=== PATIENT | female | born 1985 | race Caucasian/White ===

== ENCOUNTER 2017-05-29 05:08 | Inpatient (IN) | payer MEDICAID ==
[2017-05-29] MEDS ORDERED: Citric Acid/Sodium Citrate Solution 30 ML Cup PO ONE (05:26)
[2017-05-29] MEDS ORDERED: Sodium Chloride 0.9% 10 ML Syringe FLUSH PRN (05:26)
[2017-05-29] MEDS ORDERED: Metoclopramide 10 MG/2 ML SDV IVPUSH ONE (05:26)
[2017-05-29] MEDS: Lactated Ringers 1,000 ML IV SCH ×2 (05:50→06:57)
[2017-05-29] MEDS ORDERED: Bupivacaine 0.5% 30 ML SDV ONE (06:56)
[2017-05-29] MEDS ORDERED: ceFAZolin 1 GM Vial ONE (07:13)
[2017-05-29] MEDS ORDERED: Ketorolac 30 MG/ML SDV ONE (07:13)
[2017-05-29] MEDS ORDERED: Lactated Ringers 2,000 ML ONE (07:13)
[2017-05-29] MEDS ORDERED: Phenylephrine/Normal Saline 100 MCG/ML 10 ML Syringe ONE (07:13)
[2017-05-29] MEDS ORDERED: Dexamethasone 4 MG/ML SDV ONE (07:13)
[2017-05-29] MEDS ORDERED: Ondansetron 4 MG/2 ML SDV ONE ×2 (07:13→13:18)
[2017-05-29] MEDS ORDERED: Oxytocin 10 Units/1 ML SDV ONE (07:13)
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
[2017-05-29] MEDS ORDERED: ePHEDrine 50 MG/ML SDV IVPUSH PRN ×2 (08:31→09:49)
[2017-05-29] MEDS ORDERED: diphenhydrAMINE 50 MG/ML SDV IVPUSH PRN ×2 (08:31→09:49)
[2017-05-29] MEDS ORDERED: Ondansetron 4 MG/2 ML SDV IVPUSH PRN ×2 (08:31→13:16)
[2017-05-29] MEDS ORDERED: diphenhydrAMINE 50 MG/ML SDV ONE (08:55)
--- NOTE | 2017-05-29 08:56 | PCM.POSTAN ---
POST ANESTHESIA ASSESSMENT - MENTAL STATUS Mental Status: Alert, Oriented - VITAL SIGNS Pulse Rate: 63 SaO2: 95 Resp Rate: 11 Blood Pressure: 114/78 Temperature: 36.6 C - RESPIRATORY Respiratory Status: Respiratory Rate WNL, Airway Patent, O2 Saturation Stable - CARDIOVASCULAR CV Status: Pulse Rate WNL, Blood Pressure Stable - GASTROINTESTINAL GI Status: No Symptoms - PAIN Pain Score: 0 - POST OP HYDRATION Hydration Status: Adequate & Stable
--- NOTE | 2017-05-29 09:06 | PCM.OPNOTE ---
- General Post-Op/Procedure Note Date of Surgery/Procedure: 05/29/17 Operative Procedure(s): repeat Findings: viable female, 5#13oz, 8/9 APGARS 8/9 AT 0817, normal uterus tubes and ovaries Pre Op Diagnosis: prior desires repeat Post-Op Diagnosis: Same Anesthesia Technique: Spinal Primary Surgeon: Merline Zapata [employer] Met[employer] Engraver Hand: Saba He Role of Soft Metals Engraver Hand: retraction, positioning, patient safety EBL in mLs: 500 Condition: Good Free Text/Narrative:: The patient was taken to the operating room where epidural anesthesia was dosed to surgical levels without difficulty. The patient was prepped and draped in the usual sterile fashion in the dorsal supine position with a leftward tilt. A Pfannenstiel skin incision was made with the scalpel and carried through to the underlying layer of fascia. The fascia was incised in the midline and extended laterally using Denis scissors. Jalyn clamps were used to elevate the superior aspect of the fascial incision, which was elevated, and the underlying rectus muscles were dissected off bluntly and using Denis scissors. Attention was then turned to the inferior aspect of the fascial incision, which in similar fashion was grasped with Jalyn clamps, elevated, and the underlying rectus muscles were dissected off bluntly and using the denis. The rectus muscles were dissected in the midline. The peritoneum was entered bluntly; this incision was extended superiorly and inferiorly with good visualization of the bladder. The bladder blade was inserted. The vesicouterine peritoneum was identified and entered sharply using Metzenbaum scissors. This incision was extended laterally and the bladder flap was created digitally. The bladder blade was reinserted. The lower uterine segment was incised in a transverse fashion using the scalpel and with digital traction. Clear fluid was noted. The was subsequently delivered by flexing the head to the incision. Body and shoulders followed without difficulty. The cord was clamped and cut. The was subsequently handed to the awaiting vessel slagman whose presence had been requested.. The placenta was delivered spontaneously intact with a three-vessel cord noted. The uterus was exteriorized and cleared of all clots and debris. The uterine incision was repaired in 2 layers using 0 monocryl. Hemostasis was visualized. Hemostasis was visualized bilaterally. The uterus was returned to the abdomen. The uterine incision was reexamined and it was noted to be hemostatic. The pelvis was copiously irrigated. The fascia was closed with 1 PDS suture, and the skin was closed with 3-0 monocryl. Sponge, lap, and instrument counts were correct x2. The patient was stable at the completion of the procedure and was subsequently transferred to the recovery room in stable condition.
[2017-05-29] MEDS ORDERED: Dextrose 5%-Lactated Ringers 1,000 ML IV SCH (09:49)
[2017-05-29] MEDS ORDERED: Naloxone 0.4 MG/ML SDV IVPUSH PRN (09:49)
[2017-05-29] MEDS ORDERED: Ketorolac 30 MG/ML SDV IVPUSH SCH (09:49)
[2017-05-29] MEDS ORDERED: Acetaminophen/oxyCODONE 325-5 MG Tab PO PRN (09:49)
[2017-05-29] MEDS ORDERED: Sennosides 8.6 MG Tab PO PRN (09:49)
[2017-05-29] MEDS ORDERED: Lanolin 100% Cream 7 GM Tube TOP PRN (09:49)
[2017-05-29] MEDS ORDERED: Morphine PF 10 MG/10 ML SDV ONE (13:00)
[2017-05-29] MEDS: Simethicone 80 MG Tab.Chew PO SCH ×2 (13:54→17:55)
[2017-05-29] MEDS: Ketorolac 30 MG/ML SDV IVPUSH SCH (15:47)
[2017-05-29] MEDS ORDERED: Lactated Ringers 1,000 ML IV ONE (17:48)
[2017-05-29] MEDS ORDERED: Lactated Ringers 1,000 ML IV SCH (18:00)
[2017-05-30] MEDS: Simethicone 80 MG Tab.Chew PO SCH ×5 (04:52→21:23)
[2017-05-30] MEDS: Ketorolac 30 MG/ML SDV IVPUSH SCH ×2 (04:55)
[2017-05-30] MEDS: Ibuprofen 600 MG Tab PO PRN ×2 (13:21→18:37)
--- NOTE | 2017-05-30 15:01 | PCM48HPAN ---
Post Anesthesia Note - EVALUATION WITHIN 48HRS OF ANESTHETIC Vital Signs in Normal Range: Yes Patient Participated in Evaluation: Yes Respiratory Function Stable: Yes Airway Patent: Yes Cardiovascular Function Stable: Yes Hydration Status Stable: Yes Pain Control Satisfactory: Yes Nausea and Vomiting Control Satisfactory: Yes Mental Status Recovered: Yes
--- NOTE | 2017-05-30 19:16 | PCM.PNPP ---
- General Info Date of Service: 05/30/17 Functional Status: Reports: Pain Controlled - Review of Systems General: Reports: No Symptoms HEENT: Reports: No Symptoms Pulmonary: Reports: No Symptoms Cardiovascular: Reports: No Symptoms Gastrointestinal: Reports: No Symptoms Genitourinary: Reports: No Symptoms Musculoskeletal: Reports: No Symptoms Skin: Reports: No Symptoms Neurological: Reports: No Symptoms Psychiatric: Reports: No Symptoms - General Info Date of Service: 05/30/17 - Patient Data Vital Signs - Most Recent: Last Vital Signs Temp 36.4 C 05/30/17 14:32 Pulse 67 05/30/17 14:32 Resp 17 05/30/17 14:32 BP 131/70 05/30/17 14:32 Pulse Ox 98 05/30/17 14:32 Weight - Most Recent: 106.549 kg I&O - Last 24 Hours: Intake & Output 05/30/17 05/30/17 05/30/17 06:59 14:59 22:59 Intake Total 1000 0 300 Output Total 900 Balance 100 0 300 Lab Results - Last 24 Hours: Laboratory Results - last 24 hr 05/30/17 Range/Units 06:23 WBC 15.06 H (3.98-10.04) K/mm3 RBC 3.85 L (3.98-5.22) M/mm3 Hgb 11.6 (11.2-15.7) gm/L Hct 35.6 (34.1-44.9) % MCV 92.5 (79.4-94.8) fl MCH 30.1 (25.6-32.2) pg MCHC 32.6 (32.2-35.5) g/dl RDW Std Deviation 43.0 (36.4-46.3) fL Plt Count 222 (182-369) K/mm3 MPV 10.0 (9.4-12.3) fl Neut % (Auto) 62.4 (34.0-71.1) % Lymph % (Auto) 30.0 (19.3-51.7) % [place] % (Auto) 6.3 (4.7-12.5) % Eos % (Auto) 0.7 (0.7-5.8) Baso % (Auto) 0.1 (0.1-1.2) % Neut # (Auto) 9.39 H (1.56-6.13) K/mm3 Lymph # (Auto) 4.52 H (1.18-3.74) K/mm3 [place] # (Auto) 0.95 H (0.24-0.36) K/mm3 Eos # (Auto) 0.11 (0.04-0.36) K/mm3 Baso # (Auto) 0.01 (0.01-0.08) K/mm3 Manual Slide Review Normal smear Med Orders - Current: Current Medications Diphenhydramine HCl (Benadryl) 25 mg IVPUSH Q6H PRN PRN Reason: Itching or Nausea Emollient Ointment (Lansinoh Hpa) 0 gm TOP ASDIRECTED PRN PRN Reason: Sore Nipples Ephedrine Sulfate (Ephedrine Sulfate) 5 mg IVPUSH SEECOMMENT PRN PRN Reason: Other Lactated Ringer's (Ringers, Lactated) 1,000 mls @ 125 mls/hr IV ASDIRECTED [facility] Last Admin: 05/29/17 21:24 Dose: 125 mls/hr Ibuprofen (Motrin) 600 mg PO Q6H PRN PRN Reason: mild pain or fever Last Admin: 05/30/17 18:37 Dose: 600 mg Naloxone HCl (Narcan) 0.1 mg IVPUSH SEECOMMENT PRN PRN Reason: Respiratory Depression Ondansetron HCl (Zofran) 4 mg IVPUSH Q8H PRN PRN Reason: Nausea/Vomiting Last Admin: 05/29/17 13:21 Dose: 4 mg Oxycodone/Acetaminophen (Percocet 325-5 Mg) 2 tab PO Q6H PRN PRN Reason: Pain (moderate 4-6) Senna (Senna) 8.6 mg PO BEDTIME PRN PRN Reason: Constipation Simethicone (Simethicone) 80 mg PO PCBED [facility] Last Admin: 05/30/17 18:38 Dose: 80 mg Discontinued Medications Bupivacaine HCl (Marcaine 0.5%) Confirm Administered Dose 30 ml .ROUTE .STK-MED ONE Stop: 05/29/17 06:57 Last Admin: 05/29/17 08:14 Dose: 20 ml Cefazolin Sodium (Ancef) Confirm Administered Dose 2 gm .ROUTE .STK-MED ONE Stop: 05/29/17 07:14 Citric Acid/Sodium Citrate (Bicitra Solution) 30 ml PO ONETIME ONE Stop: 05/29/17 05:27 Last Admin: 05/29/17 06:55 Dose: 30 ml Dexamethasone (Dexamethasone) Confirm Administered Dose 4 mg .ROUTE .STK-MED ONE Stop: 05/29/17 07:14 Diphenhydramine HCl (Benadryl) 25 mg IVPUSH Q6H PRN PRN Reason: Pruritis Diphenhydramine HCl (Benadryl) Confirm Administered Dose 50 mg .ROUTE .STK-MED ONE Stop: 05/29/17 08:56 Ephedrine Sulfate (Ephedrine Sulfate) 5 mg IVPUSH ASDIRECTED PRN PRN Reason: Hypotension Lactated Ringer's (Ringers, Lactated) 1,000 mls @ 125 mls/hr IV ASDIRECTED [facility] Last Admin: 05/29/17 06:57 Dose: 500 mls/hr Lactated Ringer's (Ringers, Lactated) Confirm Administered Dose 2,000 mls @ as directed .ROUTE .STK-MED ONE Stop: 05/29/17 07:14 Dextrose/Lactated Ringer's (Dextrose 5%-Lactated Ringers) 1,000 mls @ 125 mls/ hr IV ASDIRECTED [facility] Stop: 05/29/17 17:48 Last Infusion: 05/29/17 17:54 Dose: 250 mls/hr Lactated Ringer's (Ringers, Lactated) 1,000 mls @ 999 mls/hr IV .BOLUS ONE Stop: 05/29/17 18:48 Last Admin: 05/29/17 20:07 Dose: 999 mls/hr Ketorolac Tromethamine (Toradol) Confirm Administered Dose 30 mg .ROUTE .STK- MED ONE Stop: 05/29/17 07:14 Ketorolac Tromethamine (Toradol) 30 mg IVPUSH Q6H [facility] Stop: 05/29/17 21:50 Last Admin: 05/29/17 17:00 Dose: Not Given Ketorolac Tromethamine (Toradol) 30 mg IVPUSH Q6H [facility] Stop: 05/30/17 04:01 Last Admin: 05/30/17 04:55 Dose: 30 mg Metoclopramide HCl (Reglan) 10 mg IVPUSH ONETIME ONE Stop: 05/29/17 05:27 Last Admin: 05/29/17 06:57 Dose: 10 mg Morphine Sulfate (Duramorph Pf) 10 mg .ROUTE .STK-MED ONE Stop: 05/29/17 13:01 Ondansetron HCl (Zofran) Confirm Administered Dose 4 mg .ROUTE .STK-MED ONE Stop: 05/29/17 07:14 Ondansetron HCl (Zofran) 4 mg IVPUSH ONETIME PRN PRN Reason: Nausea/Vomiting Ondansetron HCl (Zofran) Confirm Administered Dose 4 mg .ROUTE .STK-MED ONE Stop: 05/29/17 13:19 Last Admin: 05/29/17 13:48 Dose: Not Given Oxytocin (Pitocin) Confirm Administered Dose 10 unit .ROUTE .STK-MED ONE Stop: 05/29/17 07:14 Phenylephrine HCl (Phenylephrine In Ns 100 Mcg/Ml) Confirm Administered Dose 1 mg .ROUTE .STK-MED ONE Stop: 05/29/17 07:14 Sodium Chloride (Saline Flush) 10 ml FLUSH ASDIRECTED PRN PRN Reason: Keep Vein Open - Infant Interaction Infant Disposition, : Sheldon at Bedside Support Person: Significant Other - Recovery Exam Fundal Tone: Firm Fundal Level: At Umbilicus Fundal Placement: Midline Lochia Amount: Small Lochia Color: Rubra/Red Perineum Description: Intact, Minimal Bruising/Swelling Episiotomy/Laceration: None Bladder Status: Voiding Urinary Elimination: Indwelling Catheter - Exam General: Alert, Oriented HEENT: Pupils Equal Neck: Supple Lungs: Clear to Auscultation, Normal Respiratory Effort Cardiovascular: Regular Rate, Regular Rhythm GI/Abdominal Exam: Normal Bowel Sounds, Soft, Non-Tender, No Organomegaly, No Distention, No Abnormal Bruit, No Mass, Pelvis Stable Extremities: Normal Inspection, Normal Range of Motion, Non-Tender, No Pedal Edema, Normal Capillary Refill Wound/Incisions: Healing Well Neurological: No New Focal Deficit Psy/Mental Status: Alert, Normal Affect, Normal Mood - Problem List Review Problem List Initiated/Reviewed/Updated: Yes - My Orders Last 24 Hours: My Active Orders 05/30/17 Dinner Regular Diet [DIET] - Assessment Assessment:: POD1. Doing great. Will likely want to go home tomorrow. Pain controlled. Rx sent so they can get today.
[2017-05-31] MEDS: Ibuprofen 600 MG Tab PO PRN (03:54)
--- NOTE | 2017-05-31 07:10 | PCM.DCSUM1 ---
Discharge Summary - Hospital Course Brief History: 31 year old [id number] s/p repeat section. Doing excellent - Discharge Data Discharge Date: 05/31/17 Discharge Disposition: Home, Self-Care 01 Condition: Good - Patient Summary/Data Operative Procedure(s) Performed: repeat Complications: none. Tolerates ancef. Hospital Course: Unremarkable and course - Patient Instructions Diet: Usual Diet as Tolerated Activity: No Strenuous Activities Driving: May Drive Today Showering/Bathing: May Shower Wound/Incision Care: Keep Operative Site/Wound Site Clean and Dry, Change Dressing Daily, Do NOT Change Dressing Notify Provider of: Fever, Increased Pain, Swelling and Redness, Drainage, Nausea and/or Vomiting - Discharge Plan Home Medications: Home Meds Acetaminophen [Tylenol] 650 mg PO ASDIRECTED 05/29/17 [History] PNV95/Ferrous Fumarate/FA [ Tablet] 1 tab PO DAILY 05/29/17 [History] Ranitidine HCl [Zantac 75] 75 mg PO DAILY 05/29/17 [History] Patient Handouts: Smoking Cessation, Tips for Success, Gwup-rr-Dpes, Smoking Hazards Referrals: Saba He MD [Physician] - (See Benny in 2 weeks) - Discharge Summary/Plan Comment DC Time >30 min.: No - General Info Date of Service: 05/31/17 Functional Status: Reports: Pain Controlled - Review of Systems General: Reports: No Symptoms HEENT: Reports: No Symptoms Pulmonary: Reports: No Symptoms Cardiovascular: Reports: No Symptoms Gastrointestinal: Reports: No Symptoms Genitourinary: Reports: No Symptoms Musculoskeletal: Reports: No Symptoms Skin: Reports: No Symptoms Neurological: Reports: No Symptoms Psychiatric: Reports: No Symptoms - Patient Data Vitals - Most Recent: Last Vital Signs Temp 37.2 C 05/31/17 03:27 Pulse 67 05/31/17 03:27 Resp 14 05/31/17 03:27 BP 153/83 H 05/31/17 03:27 Pulse Ox 99 05/31/17 03:27 Weight - Most Recent: 106.549 kg I&O - Last 24 hours: Intake & Output 05/30/17 05/31/17 05/31/17 22:59 06:59 14:59 Intake Total 300 Balance 300 Lab Results - Last 24 hrs: Laboratory Results - last 24 hr 05/30/17 Range/Units 06:23 Manual Slide Review Normal smear Med Orders - Current: Current Medications Diphenhydramine HCl (Benadryl) 25 mg IVPUSH Q6H PRN PRN Reason: Itching or Nausea Emollient Ointment (Lansinoh Hpa) 0 gm TOP ASDIRECTED PRN PRN Reason: Sore Nipples Ephedrine Sulfate (Ephedrine Sulfate) 5 mg IVPUSH SEECOMMENT PRN PRN Reason: Other Lactated Ringer's (Ringers, Lactated) 1,000 mls @ 125 mls/hr IV ASDIRECTED [facility] Last Admin: 05/29/17 21:24 Dose: 125 mls/hr Ibuprofen (Motrin) 600 mg PO Q6H PRN PRN Reason: mild pain or fever Last Admin: 05/31/17 03:54 Dose: 600 mg Naloxone HCl (Narcan) 0.1 mg IVPUSH SEECOMMENT PRN PRN Reason: Respiratory Depression Ondansetron HCl (Zofran) 4 mg IVPUSH Q8H PRN PRN Reason: Nausea/Vomiting Last Admin: 05/29/17 13:21 Dose: 4 mg Oxycodone/Acetaminophen (Percocet 325-5 Mg) 2 tab PO Q6H PRN PRN Reason: Pain (moderate 4-6) Senna (Senna) 8.6 mg PO BEDTIME PRN PRN Reason: Constipation Simethicone (Simethicone) 80 mg PO PCBED [facility] Last Admin: 05/30/17 21:23 Dose: 80 mg Discontinued Medications Bupivacaine HCl (Marcaine 0.5%) Confirm Administered Dose 30 ml .ROUTE .STK-MED ONE Stop: 05/29/17 06:57 Last Admin: 05/29/17 08:14 Dose: 20 ml Cefazolin Sodium (Ancef) Confirm Administered Dose 2 gm .ROUTE .STK-MED ONE Stop: 05/29/17 07:14 Citric Acid/Sodium Citrate (Bicitra Solution) 30 ml PO ONETIME ONE Stop: 05/29/17 05:27 Last Admin: 05/29/17 06:55 Dose: 30 ml Dexamethasone (Dexamethasone) Confirm Administered Dose 4 mg .ROUTE .STK-MED ONE Stop: 05/29/17 07:14 Diphenhydramine HCl (Benadryl) 25 mg IVPUSH Q6H PRN PRN Reason: Pruritis Diphenhydramine HCl (Benadryl) Confirm Administered Dose 50 mg .ROUTE .STK-MED ONE Stop: 05/29/17 08:56 Ephedrine Sulfate (Ephedrine Sulfate) 5 mg IVPUSH ASDIRECTED PRN PRN Reason: Hypotension Lactated Ringer's (Ringers, Lactated) 1,000 mls @ 125 mls/hr IV ASDIRECTED [facility] Last Admin: 05/29/17 06:57 Dose: 500 mls/hr Lactated Ringer's (Ringers, Lactated) Confirm Administered Dose 2,000 mls @ as directed .ROUTE .STK-MED ONE Stop: 05/29/17 07:14 Dextrose/Lactated Ringer's (Dextrose 5%-Lactated Ringers) 1,000 mls @ 125 mls/ hr IV ASDIRECTED [facility] Stop: 05/29/17 17:48 Last Infusion: 05/29/17 17:54 Dose: 250 mls/hr Lactated Ringer's (Ringers, Lactated) 1,000 mls @ 999 mls/hr IV .BOLUS ONE Stop: 05/29/17 18:48 Last Admin: 05/29/17 20:07 Dose: 999 mls/hr Ketorolac Tromethamine (Toradol) Confirm Administered Dose 30 mg .ROUTE .STK- MED ONE Stop: 05/29/17 07:14 Ketorolac Tromethamine (Toradol) 30 mg IVPUSH Q6H [facility] Stop: 05/29/17 21:50 Last Admin: 05/29/17 17:00 Dose: Not Given Ketorolac Tromethamine (Toradol) 30 mg IVPUSH Q6H [facility] Stop: 05/30/17 04:01 Last Admin: 05/30/17 04:55 Dose: 30 mg Metoclopramide HCl (Reglan) 10 mg IVPUSH ONETIME ONE Stop: 05/29/17 05:27 Last Admin: 05/29/17 06:57 Dose: 10 mg Morphine Sulfate (Duramorph Pf) 10 mg .ROUTE .STK-MED ONE Stop: 05/29/17 13:01 Ondansetron HCl (Zofran) Confirm Administered Dose 4 mg .ROUTE .STK-MED ONE Stop: 05/29/17 07:14 Ondansetron HCl (Zofran) 4 mg IVPUSH ONETIME PRN PRN Reason: Nausea/Vomiting Ondansetron HCl (Zofran) Confirm Administered Dose 4 mg .ROUTE .STK-MED ONE Stop: 05/29/17 13:19 Last Admin: 05/29/17 13:48 Dose: Not Given Oxytocin (Pitocin) Confirm Administered Dose 10 unit .ROUTE .STK-MED ONE Stop: 05/29/17 07:14 Phenylephrine HCl (Phenylephrine In Ns 100 Mcg/Ml) Confirm Administered Dose 1 mg .ROUTE .STK-MED ONE Stop: 05/29/17 07:14 Sodium Chloride (Saline Flush) 10 ml FLUSH ASDIRECTED PRN PRN Reason: Keep Vein Open - Exam General: Reports: Alert, Oriented HEENT: Reports: Pupils Equal, Pupils Reactive, EOMI, Mucous Membr. Moist/[place] Neck: Reports: Supple Lungs: Reports: Clear to Auscultation, Normal Respiratory Effort Cardiovascular: Reports: Regular Rate, Regular Rhythm GI/Abdominal Exam: Normal Bowel Sounds, Soft, Non-Tender, No Organomegaly, No Distention, No Abnormal Bruit, No Mass, Pelvis Stable Back Exam: Reports: Normal Inspection, Full Range of Motion Extremities: Normal Inspection, Normal Range of Motion, Non-Tender, No Pedal Edema, Normal Capillary Refill Skin: Reports: Warm, Dry, Intact Wound/Incisions: Reports: Healing Well Neurological: Reports: No New Focal Deficit Psy/Mental Status: Reports: Alert, Normal Affect, Normal Mood *Q Meaningful Use (DIS) - VTE *Q VTE Criteria *Q: - Stroke *Q Stroke Criteria *Q: - AMI *Q AMI Criteria *Q:
[2017-05-31] MEDS: Simethicone 80 MG Tab.Chew PO SCH (08:38)
== END 2017-05-31 10:32 | disposition home or self-care (01) | DRG 766 ==
LOC: UNDOADMIN 05:08 → JD.OB 05:08
PROVIDERS: ADMIT Obstetrics & Gynecology; ATTEND Obstetrics & Gynecology
PROC: 10D00Z1 Extraction of Products of Conception, Low, Open Approach (ICD-10-PCS; principal; 2017-05-29)
DX: O34.211 Maternal care for low transverse scar from previous cesarean delivery (principal); N85.8 Other specified noninflammatory disorders of uterus; Z3A.39 39 weeks gestation of pregnancy; Z37.0 Single live birth; O99.334 Smoking (tobacco) complicating childbirth; F17.210 Nicotine dependence, cigarettes, uncomplicated; O99.824 Streptococcus B carrier state complicating childbirth; Z88.0 Allergy status to penicillin; Z88.8 Allergy status to other drugs, medicaments and biological substances; Z88.1 Allergy status to other antibiotic agents; Z91.040 Latex allergy status; O99.52 Diseases of the respiratory system complicating childbirth; J45.909 Unspecified asthma, uncomplicated
CPT/HCPCS: 01961; 36415; 85025; 86850; 86900; 86901; A9270-GY; J0690; J1100; J1200; J1885; J2270; J2405; J2590; J2765; J7042; J7120